=== PATIENT | male | born 1985 | race Caucasian/White ===

== ENCOUNTER → 2017-07-07 | Outpatient (CLI) | payer MEDICAID ==
[~2017-07-07] MED LIST: BENZ0.5T3 PO; BISA-155 PO; CETI10TA18 PO; CHOL400C8 PO; CLIN-79 PO; CLON-527 PO; CLON1TAB4 PO; DIVA500T9 PO; DOCU-28 PO; GLYC1TAB5 PO; IBUP-1985 PO; IBUP-1986 PO; LACT-48 PO; MELA5TAB14 PO; MULT-38 PO; OLAN15TA17 PO; QUET50TA PO; TRAZ150T78 PO; [UNRECOGNIZED DRUG - OTHER] OP
== END ==
LOC: LAB 08:51
PROVIDERS: ATTEND Psychiatry & Neurology Psychiatry
DX: Z51.81 Encounter for therapeutic drug level monitoring (principal); Z79.899 Other long term (current) drug therapy
CPT/HCPCS: 36415; 80164

== ENCOUNTER 2017-09-14 11:03 | Emergency (ER) | payer MEDICAID ==
[~2017-09-14] VITALS: Ht 172.7 cm; Wt 62.7 kg
[~2017-09-14 11:03] MED LIST changes: -BENZ0.5T3 PO; +BENZ0.5T38 PO
[2017-09-14] MEDS ORDERED: ketamine 50 mg/ml 10ml vial IM ONE (11:50)
[2017-09-14] MEDS ORDERED: LIDOcaine 1.5% w/epinephrine 1:200,000 5ml ampul IJ ONE (11:50)
[2017-09-14] MEDS ORDERED: ketamine 10mg/ml 20ml inj IV ONE (13:20)
[2017-09-14 14:42] VITALS: BP 155/92
== END 2017-09-14 14:51 | disposition home or self-care (01) ==
LOC: ER 11:04
DX: S01.511A Laceration without foreign body of lip, initial encounter (principal); Z79.899 Other long term (current) drug therapy; W45.8XXA Other foreign body or object entering through skin, initial encounter; Y93.E1 Activity, personal bathing and showering; Y92.89 Other specified places as the place of occurrence of the external cause; Y99.8 Other external cause status
CPT/HCPCS: 12011; 99152; 99153; 99285; A6449; J3490

== ENCOUNTER 2017-12-18 11:24 | Emergency (ER) | payer MEDICAID ==
[~2017-12-18] VITALS: Ht 172.7 cm; Wt 69.5 kg
[~2017-12-18 11:24] MED LIST changes: -CLIN-79 PO; +CLIN150C8 PO; +CLON-371 PO; -CLON1TAB4 PO
== END 2017-12-18 13:13 | disposition home or self-care (01) ==
LOC: ER 11:25
DX: S90.32XA Contusion of left foot, initial encounter (principal); R62.50 Unspecified lack of expected normal physiological development in childhood; Z79.899 Other long term (current) drug therapy; W22.03XA Walked into furniture, initial encounter; Y93.89 Activity, other specified; Y92.89 Other specified places as the place of occurrence of the external cause; Y99.8 Other external cause status
CPT/HCPCS: 73630; 99284

== ENCOUNTER 2018-01-23 09:08 | Emergency (ER) | payer MEDICAID ==
[~2018-01-23] VITALS: Ht 167.6 cm; Wt 68.2 kg
[2018-01-23] MEDS ORDERED: CEPH-571 PO (09:52)
== END 2018-01-23 10:07 | disposition home or self-care (01) ==
LOC: ER 09:09
DX: S00.432A Contusion of left ear, initial encounter (principal); R45.1 Restlessness and agitation; Z79.899 Other long term (current) drug therapy; W22.8XXA Striking against or struck by other objects, initial encounter; Y93.89 Activity, other specified; Y92.89 Other specified places as the place of occurrence of the external cause; Y99.9 Unspecified external cause status
CPT/HCPCS: 99283

== ENCOUNTER 2018-02-23 17:47 | Emergency (ER) | payer MEDICAID ==
[~2018-02-23] VITALS: Ht 167.6 cm; Wt 63.0 kg
[~2018-02-23 17:47] MED LIST changes: +CEPH-571 PO
[2018-02-23 18:50] VITALS: BP 156/88
== END 2018-02-23 18:52 | disposition home or self-care (01) ==
LOC: ER 17:48
DX: R04.0 Epistaxis (principal); Z79.2 Long term (current) use of antibiotics; Z79.899 Other long term (current) drug therapy
CPT/HCPCS: 99284

== ENCOUNTER 2018-04-29 09:33 | Emergency (ER) | payer MEDICAID ==
[~2018-04-29] VITALS: Ht 182.9 cm; Wt 63.6 kg
[2018-04-29 09:51] VITALS: BP 130/83
[2018-04-29] MEDS ORDERED: AMOX-580 PO (10:18)
== END 2018-04-29 10:37 | disposition home or self-care (01) ==
LOC: ER 09:47
DX: H72.91 Unspecified perforation of tympanic membrane, right ear (principal); Z79.899 Other long term (current) drug therapy
CPT/HCPCS: 99283

== ENCOUNTER 2018-06-05 08:54 | Outpatient (CLI) | payer MEDICAID | END 2018-06-05 23:59 | disposition home or self-care (01) | LOC: LAB 08:54 | PROVIDERS: ATTEND Family Medicine | DX: Z00.00 Encounter for general adult medical examination without abnormal findings (principal); Z53.21 Procedure and treatment not carried out due to patient leaving prior to being seen by health care provider ==

== ENCOUNTER 2019-02-28 08:49 | Outpatient (CLI) | payer MEDICAID ==
[~2019-02-28 08:49] MED LIST changes: +BENZ0.5T27 PO; -BENZ0.5T38 PO; -CEPH-571 PO; -CLIN150C8 PO; +DIPH25CA83 PO; +IBUP-1984 PO; -IBUP-1985 PO; -IBUP-1986 PO; -LACT-48 PO; -OLAN15TA17 PO; +OLAN15TA17 TL; +POLY17PO10 PO; +QUET300T5 PO; -TRAZ150T78 PO; -[UNRECOGNIZED DRUG - OTHER] OP
[2019-02-28 09:54] LABS: BASOPHILS # (AUTO) 0.1 X10'3 (0-0.2); BASOPHILS % (AUTO) 0.5 % (0-1); EOSINOPHILS # (AUTO) 0.1 X10'3 (0-0.9); EOSINOPHILS % (AUTO) 0.7 % (0-6); HEMATOCRIT 45.4 % (42.0-52.0); HEMOGLOBIN 15.5 g/dl (14.0-17.9); LYMPHOCYTES # (AUTO) 3.8 X10'3 (1.1-4.8); MEAN CORPUSCULAR HEMOGLOBIN 28.7 PG (27.0-31.0); MEAN CORPUSCULAR HGB CONC 34.1 g/dL (33.0-36.5); MEAN CORPUSCULAR VOLUME 84.2 FL (78-98); MONOCYTES # (AUTO) 0.6 X10'3 (0-0.9); MONOCYTES % (AUTO) 6.4 % (2-12); NEUTROPHILS # (AUTO) 5.1 X10'3 (1.8-7.7); NEUTROPHILS % (AUTO) 53.4 % (42-75); PLATELET COUNT 254 X10'3 (140-440); RED BLOOD COUNT 5.39 X10'6 (4.70-6.10); RED CELL DISTRIBUTION WIDTH 14.4 % (11.5-14.5); WHITE BLOOD COUNT 9.6 X10'3 (4.5-11.0)
[2019-02-28 10:05] LABS: ALANINE AMINOTRANSFERASE 23 U/L (12-78); ALBUMIN 3.8 G/DL (3.4-5.0); ALBUMIN/GLOBULIN RATIO 0.8 (1.1-1.5); ALKALINE PHOSPHATASE 146 IU/L (46-116); ANION GAP 11 (8-16); ASPARTATE AMINO TRANSFERASE 22 U/L (10-37); BILIRUBIN,TOTAL 0.2 MG/DL (0.1-1.0); BLOOD UREA NITROGEN 15 MG/DL (7-18); BUN/CREATININE RATIO 18.5 (5.4-32.0); CALCIUM 9.2 MG/DL (8.5-10.1); CHLORIDE 107 MMOL/L (99-107); CHOL/HDL RATIO 4.6 (0.00-4.99); CHOLESTEROL 169 MG/DL (0-200); CREATININE 0.81 MG/DL (0.60-1.10); GLUCOSE 98 MG/DL (70-104); HDL CHOLESTEROL 37 MG/DL (35-60); LDL CHOLESTEROL 111 MG/DL (50-100); POTASSIUM 4.3 MMOL/L (3.5-5.1); SODIUM 143 MMOL/L (135-145); TOTAL CARBON DIOXIDE 25.4 MMOL/L (24-32); TOTAL PROTEIN 8.6 G/DL (6.4-8.2); TRIGLYCERIDES 186 MG/DL (20-135); eGFR > 90 ML/MIN
== END 2019-02-28 23:59 | disposition home or self-care (01) ==
LOC: LAB 08:49
PROVIDERS: ATTEND Family Medicine
DX: Z00.00 Encounter for general adult medical examination without abnormal findings (principal)
CPT/HCPCS: 36415; 80053; 80061; 85025

== ENCOUNTER 2019-02-28 08:57 | Outpatient (CLI) | payer MEDICAID | END 2019-02-28 23:59 | disposition home or self-care (01) | LOC: LAB 08:57 | PROVIDERS: ATTEND Psychiatry & Neurology Psychiatry | DX: Z79.899 Other long term (current) drug therapy (principal) | CPT/HCPCS: 36415; 80164 ==

== ENCOUNTER 2019-05-01 09:45 | Emergency (ER) | payer MEDICAID ==
[~2019-05-01] VITALS: Ht 165.1 cm; Wt 76.0 kg
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
[2019-05-01] MEDS ORDERED: ketamine 50 mg/ml 10ml vial IM ONE (11:20)
--- NOTE | 2019-05-01 13:25 | NUR ---
Spoke to PA regarding pt's BP. We were unable to obtain BP prior to administration of ketamine secondary to pt's underlying condition. He is comfortable with BP at this time.
--- NOTE | 2019-05-01 14:15 | NUR ---
Pt at baseline, however unsteady when attempting to stand. Waiting for pt to have more stability prior to discharge.
--- NOTE | 2019-05-01 14:34 | NUR ---
Pt gait remains too unsteady for discharge.
[2019-05-01 14:59] VITALS: BP 148/85
== END 2019-05-01 15:11 | disposition home or self-care (01) ==
LOC: ER 09:45
DX: S01.21XA Laceration without foreign body of nose, initial encounter (principal); F84.0 Autistic disorder; Z79.899 Other long term (current) drug therapy; W18.39XA Other fall on same level, initial encounter; Y93.89 Activity, other specified; Y92.89 Other specified places as the place of occurrence of the external cause; Y99.8 Other external cause status
CPT/HCPCS: 99152; 99285

== ENCOUNTER → 2020-01-24 | Outpatient (CLI) | payer MEDICAID ==
[2020-01-24 10:30] LABS: CHOL/HDL RATIO 4.6 (0.00-4.99); CHOLESTEROL 195 MG/DL (0-200); HDL CHOLESTEROL 42 MG/DL (35-60); LDL CHOLESTEROL 128 MG/DL (50-100); TRIGLYCERIDES 109 MG/DL (20-135); VALPROATE 49 UG/ML (50-100)
== END | disposition home or self-care (01) ==
LOC: LAB 09:14
PROVIDERS: ATTEND Psychiatry & Neurology Psychiatry
DX: Z79.899 Other long term (current) drug therapy (principal)
CPT/HCPCS: 36415; 80061; 80164

== ENCOUNTER 2020-04-24 09:04 | Outpatient (CLI) | payer MEDICAID ==
[2020-04-24 11:26] LABS: BASOPHILS # (AUTO) 0.1 X10'3 (0-0.2); EOSINOPHILS # (AUTO) 0.1 X10'3 (0-0.9); HEMATOCRIT 43.5 % (42.0-52.0); HEMOGLOBIN 14.7 g/dl (14.0-17.9); LYMPHOCYTES # (AUTO) 3.6 X10'3 (1.1-4.8); MEAN CORPUSCULAR HEMOGLOBIN 28.8 PG (27.0-31.0); MEAN CORPUSCULAR HGB CONC 33.8 g/dL (33.0-36.5); MEAN CORPUSCULAR VOLUME 85.4 FL (78-98); MEAN PLATELET VOLUME 8.7 FL (7.4-10.4); MONOCYTES # (AUTO) 0.6 X10'3 (0-0.9); MONOCYTES % (AUTO) 6.2 % (2-12); NEUTROPHILS # (AUTO) 5.8 X10'3 (1.8-7.7); NEUTROPHILS % (AUTO) 56.8 % (42-75); PLATELET COUNT 264 X10'3 (140-440); RED BLOOD COUNT 5.09 X10'6 (4.70-6.10); RED CELL DISTRIBUTION WIDTH 14.3 % (11.5-14.5); WHITE BLOOD COUNT 10.2 X10'3 (4.5-11.0)
[2020-04-24 11:40] LABS: ALANINE AMINOTRANSFERASE 21 U/L (12-78); ALBUMIN 3.8 G/DL (3.4-5.0); ALBUMIN/GLOBULIN RATIO 0.8 (1.1-1.5); ALKALINE PHOSPHATASE 112 IU/L (46-116); ANION GAP 15 (8-16); ASPARTATE AMINO TRANSFERASE 19 U/L (10-37); BILIRUBIN,TOTAL 0.2 MG/DL (0.1-1.0); BLOOD UREA NITROGEN 18 MG/DL (7-18); CHLORIDE 106 MMOL/L (99-107); CHOL/HDL RATIO 4.4 (0.00-4.99); CHOLESTEROL 173 MG/DL (0-200); CREATININE 0.82 MG/DL (0.60-1.10); GLUCOSE 92 MG/DL (70-104); HDL CHOLESTEROL 39 MG/DL (35-60); LDL CHOLESTEROL 103 MG/DL (50-100); POTASSIUM 3.9 MMOL/L (3.5-5.1); SODIUM 145 MMOL/L (135-145); TOTAL CARBON DIOXIDE 23.8 MMOL/L (24-32); TOTAL PROTEIN 8.4 G/DL (6.4-8.2); TRIGLYCERIDES 151 MG/DL (20-135); eGFR > 90 ML/MIN
[2020-04-25 14:40] LABS: HEPATITIS C ANTIBODY <0.1 s/co ratio (0.0-0.9)
== END 2020-04-24 23:59 | disposition home or self-care (01) ==
LOC: LAB 09:04
DX: Z71.3 Dietary counseling and surveillance (principal)
CPT/HCPCS: 36415; 80053; 80061; 83695; 85025; 86803; 87522; 87902

== ENCOUNTER 2024-07-30 13:51 | Emergency (ER) | payer MEDICAID ==
[~2024-07-30] VITALS: Ht 172.7 cm; Wt 52.0 kg
[~2024-07-30 13:51] MED LIST changes: -BENZ0.5T27 PO; +BENZ0.5T52 PO; -CETI10TA18 PO; +CETI10TA19 PO; -MELA5TAB14 PO; +MELA5TAB66 PO; -OLAN15TA17 TL; +OLAN15TA97 TL
[2024-07-30 21:07] VITALS: PULSE 105; RESP 18; TEMP 97.8; O2SAT 95
== END 2024-07-30 16:48 | disposition home or self-care (01) ==
LOC: ER 13:52
DX: R05.9 Cough, unspecified (principal)
CPT/HCPCS: 71045; 99283

== ENCOUNTER 2024-11-20 17:00 | Emergency (ER) | payer MEDICAID ==
--- NOTE | 2024-11-20 18:00 | RADIOLOGY REPORT ---
CHEST RADIOGRAPH Indication: SOB Technique: Single frontal view of the chest was obtained COMPARISON: None FINDINGS: The cardiac silhouette is borderline enlarged. The lungs demonstrate bilateral patchy airspace opacit ies. The pulmonary vasculature is prominent. Small bilateral pleural effusions, [id number] ft. There is no pneumothorax. Old distal right clavicular fracture deformity. IMPRESSION: As above
[2024-11-20 18:07] LABS: MEAN PLATELET VOLUME 8.8 FL (7.4-10.4); RED CELL DISTRIBUTION WIDTH 13.3 % (11.5-14.5)
[2024-11-20 18:17] LABS: CREATININE 1.01 MG/DL (0.60-1.10); TOTAL CARBON DIOXIDE 23.0 MMOL/L (24-32); eGFR 82 ML/MIN
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
[2024-11-20] MEDS: normal saline 1000ML IV soln IVB ONE (19:05)
[2024-11-20 20:54] LABS: LEUKOCYTE ESTERASE ,URINE NEGATIVE (Neg); NITRITES, URINE NEGATIVE (Neg); OCCULT BLOOD,URINE LARGE (Neg)
[2024-11-20 20:56] LABS: UA COLLECTION TYPE STRAIGHT CATH
[2024-11-20 20:59] LABS: SQUAMOUS EPITHELIAL CELL,UR FEW /LPF (FEW); YEAST MODERATE /HPF (NEGATIVE)
[2024-11-20 22:29] VITALS: BP 164/88; PULSE 98; RESP 22; TEMP 99.1; O2SAT 98
== END 2024-11-20 22:34 | disposition home or self-care (01) ==
LOC: ER 17:01
DX: S01.311A Laceration without foreign body of right ear, initial encounter (principal); R00.0 Tachycardia, unspecified; R50.9 Fever, unspecified; Z88.6 Allergy status to analgesic agent; X58.XXXA Exposure to other specified factors, initial encounter; Y93.89 Activity, other specified; Y92.89 Other specified places as the place of occurrence of the external cause; Y99.8 Other external cause status
CPT/HCPCS: 36415; 71045; 80048; 80329; 81001; 83605; 84145; 85025; 87040; 87088; 96360; 99285; J7030; C1758

== ENCOUNTER 2024-11-28 10:36 | Emergency (ER) | payer MEDICAID ==
[~2024-11-28] VITALS: Ht 167.6 cm; Wt 60.8 kg
[2024-11-28 10:37] VITALS: BP 151/102; PULSE 123; RESP 17; TEMP 99.6; O2SAT 95
--- NOTE | 2024-11-28 11:16 | Physician Documentation ---
History of Present Illness ~ Chief Complaint: Knee Pain Stated Complaint: KNEE PAIN Time Seen by MD: 10:44 OK to notify your PCP?: Yes Primary Medical Doctor: RENE Source: patient (The patient's scanner operator) Mode of Arrival: POV Exam Limitations: no limitations HPI This is a 39-year-old male with a history of cerebral palsy and severe developmental delay. Evidently the patient has self harms quiet often and had a recent fall to both knees. He has some mild bruising and swelling of the left knee and the caretakers were concerned there maybe something more going on with the patient has been ambulating of the knee. No other obvious complaints of injury. Tetanus witin 5 years: Yes Medication Reconciliation Allergies: Coded Allergies: No Known Allergies (Unverified , 11/20/24) Scheduled Benztropine Mesylate (Benztropine Mesylate), 1 MG PO BID, (Reported) Cetirizine HCl (Cetirizine HCl), 1 TAB PO DAILY, (Reported) Cholecalciferol (Vitamin D3) (Vitamin D3), 400 UNIT PO DAILY, (Reported) Clonazepam (Clonazepam), 2 TABLET PO AT 8PM, (Reported) Clonazepam* (Klonopin*), 1 MG PO AM AND 6 PM, (Reported) Diphenhydramine Hcl (Benadryl), 2 CAP PO BID, (Reported) Divalproex ER* (Depakote ER*), 2 TAB PO HS, (Reported) Docusate Sodium (Colace), 1 CAP PO HS, (Reported) Glycopyrrolate (Robinul), 1 TAB PO DAILY, (Reported) Ibuprofen* (Motrin*), 0.5 TAB PO Q6H PRN, (Reported) Melatonin (Melatonin), 1 TAB PO HS, (Reported) Multivitamin (Daily Multiple Vitamin), 1 TAB PO DAILY, (Reported) Olanzapine (Olanzapine), 2 TAB TL HS, (Reported) Quetiapine Fumarate (Seroquel), 250 MG PO DAILY, (Reported) Quetiapine Fumarate (Seroquel Xr), 550 MG PO HS, (Reported) Scheduled PRN Bisacodyl (Dulcolax), 2 TABLET PO DAILY PRN for constipation, (Reported) Polyethylene Glycol 3350* (Miralax*), 1 PKT PO DAILY PRN for constipation, (Reported) Past Medical History 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 It is a very superficial abrasion. No erythema or deformity. No obvious effusion. The exam is very limited due to the fact the patient does not tolerate any touch anywhere in the body. However there was no obvious mediolateral joint line deformity. Patella tendon in his intact. No obvious crepitus of the patella itself. Progress Results/Orders Results/Orders Vital Signs 11/28/24 10:37 Temp 99.6 Pulse 123 Resp 17 B/P (MAP) 151/102 Pulse Ox 95 Medical Decision Making Findings An x-ray was attempted however the patient would not tolerate an x-ray of any forearm. This was witnessed by the scanner operator who was understanding. I saw the patient ambulate without any obvious difficulty or deficit. I told the scanner operator her that even if there was a fracture of the patient would not tolerate any type of bracing or splint and would undoubtedly had to heal on its own and time. He can follow up with the PCP for recheck in the next couple of days Additional Comment Left knee contusion. Low clinical suspicion for fracture. Departure Disposition: HOME / SELF CARE / HOMELESS Impression: Primary Impression: Contusion of knee, left Condition: Stable Discharge Instructions: Acute Knee Pain, Adult Additional Instructions: If the patient will tolerate you can though try to apply cold compresses and give Tylenol or any other nonnarcotic [id number] pain medication. Follow up with the primary care physician for recheck. Return for any concerns Referrals: NO PRIMARY CARE PROVIDER (PCP) Signature Scribe Signature: No scribe Attestation: The note accurately reflects work and decisions made by me.Roney BRANHAM 11/28/24 11:16 RONEY GRAF Nov 28, 2024 11:16
== END 2024-11-28 11:20 | disposition home or self-care (01) ==
LOC: ER 10:36
DX: S80.02XA Contusion of left knee, initial encounter (principal); Z79.899 Other long term (current) drug therapy; W18.30XA Fall on same level, unspecified, initial encounter; Y93.89 Activity, other specified; Y92.89 Other specified places as the place of occurrence of the external cause; Y99.8 Other external cause status
CPT/HCPCS: 99284

== ENCOUNTER 2024-12-02 22:52 | Inpatient (IN) | payer MEDICAID ==
[~2024-12-02] VITALS: Ht 165.1 cm; Wt 60.0 kg
--- NOTE | 2024-12-02 23:13 | Physician Documentation ---
History of Present Illness ~ Chief Complaint: Shortness of Breath Stated Complaint: UNABLE TO EAT,WEAKNESS,COUGH Time Seen by MD: 23:01 [facility] Patient presents to the emergency room with chief complaint of lethargy and respiratory distress. Patient was seen here twice this past week for unrelated symptoms. Staff noted that patient was breathing heavily therefore sent him in to be evaluated. Patient is severely delayed and not helpful with history. Patient is not on oxygen in his now requiring oxygen. History of prior pneumonia/aspiration. Medication Reconciliation Allergies: Coded Allergies: No Known Allergies (Unverified , 11/20/24) Scheduled Benztropine Mesylate (Benztropine Mesylate), 1 MG PO BID, (Reported) Benztropine Mesylate (Benztropine Mesylate), 1 TABLET PO BID, (Reported) Cetirizine HCl (Cetirizine HCl), 1 TAB PO DAILY, (Reported) Cholecalciferol (Vitamin D3) (Vitamin D3), 400 UNIT PO DAILY, (Reported) Clonazepam (Clonazepam), 2 TABLET PO AT 8PM, (Reported) Clonazepam* (Klonopin*), 1 MG PO AM AND 6 PM, (Reported) Diphenhydramine Hcl (Benadryl), 2 CAP PO BID, (Reported) Divalproex ER* (Depakote ER*), 2 TAB PO HS, (Reported) Docusate Sodium (Colace), 1 CAP PO HS, (Reported) Glycopyrrolate (Robinul), 1 TAB PO DAILY, (Reported) Ibuprofen* (Motrin*), 0.5 TAB PO Q6H PRN, (Reported) Melatonin (Melatonin), 1 TAB PO HS, (Reported) Multivitamin (Daily Multiple Vitamin), 1 TAB PO DAILY, (Reported) Olanzapine (Olanzapine), 2 TAB TL HS, (Reported) Quetiapine Fumarate (Seroquel), 250 MG PO DAILY, (Reported) Quetiapine Fumarate (Seroquel Xr), 550 MG PO HS, (Reported) Scheduled PRN Bisacodyl (Dulcolax), 2 TABLET PO DAILY PRN for constipation, (Reported) Polyethylene Glycol 3350* (Miralax*), 1 PKT PO DAILY PRN for constipation, (Reported) Past Medical History 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 Eyes: Conjunctival normal. EOMI. PERRL. ENT: Mucous membranes moist. Neck: Supple, trachea is midline. Chest: Coarse breath sounds bilaterally, tachypneic. Cardiac: Tachycardic and regular without murmurs, gallops, or rubs. Progress Results/Orders Results/Orders Orders - DESTIN DEE MD Chest,Single View (12/02/24 23:20) Monitor (12/02/24 23:04) Saline Lock (12/02/24 23:04) Oxygen (12/02/24 23:04) Electrocardiogram (12/02/24 23:04) Culture Blood (12/02/24 23:05) * Restraint Order/Renewal * (12/02/24 23:13) Cta Chest Pe (12/03/24 01:00) Page Hospitalist (12/03/24 02:21) Fill Out Med Reconciliation (12/03/24 02:21) Completed Orders - DESTIN DEE MD Chest,Single View (12/02/24 23:20) Cbc/Diff (12/02/24 23:04) BMP (12/02/24 23:04) PBNP (12/02/24 23:04) Hs Troponin I W Calculations (12/02/24 23:04) Hs Troponin I W Calculations (12/03/24 01:04) Hs Troponin I W Calculations (12/03/24 02:04) Lacticsepsis (12/02/24 23:05) Azithromycin/Ns 500mg/250ml (Zithromax/N (12/02/24 23:20) Ceftriaxone/M0e-Vgyoznck 1gm (Rocephin 1 (12/02/24 23:20) Man Diff (12/02/24 23:36) Cta Chest Pe (12/03/24 01:00) Procalcitonin (12/03/24 00:22) Iohexol 350mg/Ml 100ml (Omnipaque 350mg/ (12/03/24 00:27) Midazolam 1 Mg/Ml 2ml Inj. (Versed 1 Mg/ (12/03/24 00:30) Midazolam 5 Mg/Ml 2ml Inj (Versed 5 Mg/M (12/03/24 00:35) Medications Received in ER Medications (Trade) Dose Ordered Sig/Vee Route PRN Reason Start Time Stop Time Status Last Admin Dose Admin Azithromycin 250 ml @ 250 mls/hr ONCE ONCE IV 12/02/24 23:20 12/03/24 00:19 DC 12/03/24 00:05 250 MLS/HR Ceftriaxone Sodium 50 ml @ 100 mls/hr ONCE ONCE IV 12/02/24 23:20 12/02/24 23:49 DC 12/02/24 23:56 100 MLS/HR (Versed 5 MG/ML 2ML inj) 1 mg ONCE ONCE IV 12/03/24 00:35 12/03/24 00:36 DC 12/03/24 00:53 1 MG Sodium Chloride 1,000 ml @ 50 mls/hr Q20H IV 12/03/24 02:45 12/03/24 03:11 50 MLS/HR Vital Signs 12/02/24 12/02/24 12/02/24 12/03/24 22:59 23:15 23:15 02:00 Temp 97.6 Pulse 95 110 102 Resp 30 16 30 26 B/P (MAP) 119/88 126/66 (86) 120/85 (97) Pulse Ox 95 96 99 O2 Flow Rate 5.0 0 Laboratory Tests Test 12/02/24 23:36 12/03/24 01:27 12/03/24 02:46 White Blood Count 8.3 Red Blood Count 4.33 L Hemoglobin 12.7 L Hematocrit 37.6 L Mean Corpuscular Volume 86.8 Mean Corpuscular Hemoglobin 29.3 Mean Corpuscular Hemoglobin Concent 33.8 Red Cell Distribution Width 13.6 Platelet Count 204 Mean Platelet Volume 9.0 Neutrophils (%) (Auto) 72.5 Lymphocytes (%) (Auto) 12.0 L Monocytes (%) (Auto) 13.9 H Eosinophils (%) (Auto) 0.9 Basophils (%) (Auto) 0.7 Neutrophils # (Auto) 6.0 Lymphocytes # (Auto) 1.0 L Monocytes # (Auto) 1.2 H Eosinophils # (Auto) 0.1 Basophils # (Auto) 0.1 CBC Comment Differential Total Cells Counted 100 Neutrophils % (Manual) 70.0 Band Neutrophils % 3.0 Lymphocytes % (Manual) 11.0 L Monocytes % (Manual) 15.0 H Eosinophils % (Manual) 1.0 Platelet Estimate Normal Red Blood Cell Morphology Normal Basophilic Stippling Sodium Level 140 Potassium Level 4.1 Chloride Level 101 Carbon Dioxide Level 28.2 Anion Gap 11 Blood Urea Nitrogen 33 H Creatinine 0.98 Estimated GFR/1.73 m2 85 BUN/Creatinine Ratio 33.7 H Glucose Level 104 Lactic Acid Level 1.4 Calcium Level 8.7 Troponin I High Sensitivity 10 13 13 Pro-B-Type Natriuretic Peptide < 30 Albumin 2.7 L Procalcitonin 0.05 Chemistry Comments Troponin I High Sens Percent Delta 30 0 Troponin I Hi Sens Absolute Change 3 0 Hemoglobin A1c 5.4 Microbiology Date/Time Source Procedure Growth Status 12/03/24 00:04 Blood Arm Left Blood Culture - Preliminary NEGATIVE (LESS THAN 24 HOURS) Resulted Medical Decision Making Findings Patient presented to the emergency room with shortness of breath. Differentials include but are not limited to pneumonia, pneumothorax, pulmonary embolism, viral syndrome, asthma therefore emergent labs and imaging indicated. Imaging and workup significant for pneumonia. IV antibiotics initiated. As patient is hypoxic we will admit for further treatment. Departure Admitted to Inpatient Unit: yes, to hospitalist Impression: Primary Impression: Pneumonia Additional Impression: Hypoxia Condition: Guarded Referrals: NO PRIMARY CARE PROVIDER (PCP) Signature Scribe Signature: No scribe Attestation: The note accurately reflects work and decisions made by me.Destin Dee MD 12/03/24 03:41 DESTIN DEE MD Dec 02, 2024 23:13
[2024-12-02 23:46] LABS: MEAN PLATELET VOLUME 9.0 FL (7.4-10.4); RED CELL DISTRIBUTION WIDTH 13.6 % (11.5-14.5)
--- NOTE | 2024-12-02 23:46 | RADIOLOGY REPORT ---
CHEST RADIOGRAPH REASON FOR EXAM: Chest pain COMPARISON: DI CHEST,SINGLE VIEW on DOS: 11/20/24, DI CHEST,SINGLE VIEW on DOS: 07/30/24 TECHNIQUE: One view of the chest is provided FINDINGS: The cardiomediastinal silhouette is stable. There is worsening bilateral patchy airspace di sease. There are small bilateral pleural effusions, increased. There is no pneumothorax. No acute os seous abnormality is identified. There is old healed fracture of the right clavicle. IMPRESSION: Worsening bilateral patchy airspace disease. Small bilateral pleural effusions, also slightly increas ed.
[2024-12-02] MEDS: CefTRIAXone/D5W-Rocephin 1gm 50 ML IV ONE (23:56)
[2024-12-03] VITALS (10 sets, daily range): BP systolic 123–144; BP diastolic 61–88; PULSE 88–102; RESP 19–48; TEMP 97.3–99.7; O2SAT 93–96
[2024-12-03] MEDS: azithromycin/NS 500mg/250ml 250 ML IV ONE (00:05)
[2024-12-03 00:06] LABS: CREATININE 0.98 MG/DL (0.60-1.10); PRO BRAIN NATRIURETIC PEPTIDE < 30 PG/ML (0-125); TOTAL CARBON DIOXIDE 28.2 MMOL/L (24-32); eCRCL 88 ML/MIN; eGFR 85 ML/MIN
[2024-12-03] MEDS ORDERED: midazolam 1 mg/ML 2ml injection IV ONE (00:30)
[2024-12-03] MEDS: MIDAZolam 5mg/ml 2ml vial IV ONE (00:53)
[2024-12-03 01:05] LABS: BANDS% (MANUAL) 3.0 % (0-10); EOSINOPHILS % (MANUAL) 1.0 % (0-6); LYMPHOCYTES % (MANUAL) 11.0 % (21-51); MONOCYTES % (MANUAL) 15.0 % (2-12); NEUTROPHILS % (MANUAL) 70.0 % (42-75); PLATELET ESTIMATE NORMAL
--- NOTE | 2024-12-03 02:06 | RADIOLOGY REPORT ---
CTA Chest with intravenous contrast INDICATION: sob COMPARISON: None TECHNIQUE: Multidetector spiral CTA of the chest was performed of the chest with intravenous contrast . PULMONARY ANGIOGRAPHY PROTOCOL was utilized using a bolus-tracking technique centered on the main p ulmonary artery. Axial, coronal and sagittal multiplanar and MIP reformats were performed. Radiation Dose : 1. Chest: CTDI volume is 23.27 mGy. Dose-length product is 657.44 mGy*cm The dose indicators for CT are the volume Computed Tomography (CT) Dose Index (CTDIvol) and the Dose Length Product (DLP), and are measured in units of mGy and mGy-cm, respectively. These indicators are not patient dose, but values generated from the CT scanner acquisition factors. The report includes radiation exposure data for exposures received during this examination. Findings: Pulmonary artery: No pulmonary embolism. The main pulmonary artery measures 2.7 cm in the ascending thoracic aorta measures 3.2 cm. Lower neck: Normal thyroid. Lungs: Multifocal bilateral lower lobe, lingular and right middle lobe consolidation and patchy bilat eral upper lobe infiltrate. No evidence of pleural effusion. No evidence of pneumothorax. Heart/Vascular Structures: Cardiomegaly. No pericardial effusion. Lymph Nodes: 1.5 cm short axis dimension right suprahilar lymph node. Musculoskeletal: No acute osseous abnormality. Soft tissues: Normal. Upper abdomen: Limited portions of the upper abdomen are unremarkable. IMPRESSION: 1. No pulmonary embolism. 2. Extensive bilateral lower lobe, lingular and right middle lobe consolidation consistent with pneum onia. Patchy multifocal bilateral upper lobe pulmonary infiltrate noted as well. 3. Cardiomegaly. 4. Enlarged right hilar lymph node.
[2024-12-03] MEDS ORDERED: ondansetron/PF 4mg/2ml inj IV PRN (02:45)
[2024-12-03] MEDS ORDERED: mag hydrox/Alum hydrox/simeth 30ml oral suspension PO PRN (02:45)
[2024-12-03] MEDS ORDERED: magnesium sulf-water 4G/100mL 100 ML IV PRN (02:45)
[2024-12-03] MEDS ORDERED: magnesium Cl slow-release 64mg tablet PO PRN (02:45)
[2024-12-03] MEDS ORDERED: potassium Cl 20 mEq SR tablet PO PRN ×2 (02:45)
[2024-12-03] MEDS ORDERED: magnesium sulf-water 2g/50mL 50 ML IV PRN (02:45)
[2024-12-03] MEDS ORDERED: potassium Cl 40MEQ/1/2NS 520ml 520 ML IV PRN (02:45)
[2024-12-03] MEDS ORDERED: magnesium hydroxide 30ml (MOM) UD suspension PO PRN (02:45)
[2024-12-03] MEDS ORDERED: HYDROcodone/acetaminophen 5mg/325mg tablet PO PRN (02:45)
[2024-12-03] MEDS ORDERED: HYDROcodone/acetaminophen 10/325mg tab PO PRN (02:45)
[2024-12-03] MEDS ORDERED: albuterol 2.5 MG/3 ML nebule NEB PRN (02:50)
--- NOTE | 2024-12-03 03:00 | HISTORY AND PHYSICAL-Residence ---
History & Physical Providers to CC Resident Creating Document: FLORINDA BAKER RES ~ History of Present Illness Primary Medical Doctor: [facility] Reason for Admit\Complaint: Shortness of breath History of Present Illness This 39-year-old male with a history of autism, profound intellectual disability, PICA was brought to the ER by his caregiver. Patient is nonverbal and can not understand or answer questions. All the information provided by the caregiver. States that the patient does not talk and is self-injurious and hits his head to muro and doors as he walks. Usually eats a lot but has not been eating much since Monday last week. Looked lethargic and also had shortness of breaths. Started coughing but did not bring up any phlegm. He also noticed that the patient was limping on the left leg. Patient usually forcefully bends to the floor and hit said and so the caregiver suspect some injury. He also noticed mild edema in the left foot today. Denies any fever or chills, chest pain, nausea or vomiting, constipation or diarrhea. His last bowel movement was on Monday. Per the caregiver, patient had recurrent pneumonias in the past and was admitted at [facility] in March last year for about one week of antibiotics and also oxygen requirement. Denies any intubation or ICU admission. Patient has been at the facility since 2016. Caregiver at the bedside-Mr. Hassan - [phone]. He is unsure about patient's code status and is okay for the patient to be on a full code. Patient's conservator-Ms.Claudia De Los Santos - [phone]. Allergies: Coded Allergies: No Known Allergies (Unverified , 11/20/24) Home Medications Home Medications Active Reported Benadryl (Diphenhydramine Hcl) 25 Mg Capsule 2 Cap PO BID Seroquel Xr (Quetiapine Fumarate) 300 Mg Tab.sr.24h 550 Mg PO HS Miralax* (Polyethylene Glycol) 1 Packet Packet 1 Pkt PO DAILY PRN Motrin* (Ibuprofen) 400 Mg Tablet 0.5 Tab PO Q6H PRN Olanzapine 15 Mg Tablet 2 Tab TL HS Seroquel (Quetiapine Fumarate) 50 Mg Tablet 250 Mg PO DAILY Melatonin 5 Mg Tablet 1 Tab PO HS Clonazepam 1 Mg Tablet 2 Tablet PO AT 8PM Vitamin D3 (Cholecalciferol (Vitamin D3)) 400 Unit Capsule 400 Unit PO DAILY Robinul (Glycopyrrolate) 1 Mg Tablet 1 Tab PO DAILY Daily Multiple Vitamin (Multivitamin) 1 Each Tablet 1 Tab PO DAILY Dulcolax (Bisacodyl) 5 Mg Tablet.dr 2 Tablet PO DAILY PRN Depakote ER* (Divalproex Sodium) 500 Mg Tab.sr.24h 2 Tab PO HS Colace (Docusate Sodium) 100 Mg Capsule 1 Cap PO HS Klonopin* (Clonazepam) 1 Mg Tablet 1 Mg PO AM AND 6 PM Cetirizine HCl 10 Mg Tab.chew 1 Tab PO DAILY Benztropine Mesylate 0.5 Mg Tablet 1 Mg PO BID Past Medical History Past Medical History Autism, profound intellectual disability, PICA Past Surgical History Surgical History Comment Per caregiver, no surgical history as well as he knows Past Social History Social History Comment Per caregiver, patient does not smoke tobacco, drink alcohol or abusing any other recreational drugs Alcohol Use: None Drug Use: None Lives with: Other Lives In: Assisted Care Occupation: disabled ROS ROS Patient is awake but is not oriented. Is nonverbal. Withdraws to pain. Could not perform review of systems Exam Vitals: Vital Signs Date Time Temp Pulse Resp B/P (MAP) Pulse Ox O2 Delivery O2 Flow Rate FiO2 12/03/24 02:00 102 26 120/85 (97) 99 0 12/02/24 22:59 97.6 General: Awake. GCS 9-spontaneous eye response, no verbal response, withdrawal from pain. In mild respiratory distress HEENT: Normocephalic and atraumatic. Pupils equal round reactive to light. Extraocular movements intact. Patient not showing his face for examination Neck: Trachea is in midline. No masses or JVD Chest: Bilateral decreased breath sounds. Bilateral rhonchi present. No wheezing or crackles Cardiovascular: Regular rhythm. Tachycardic. No rubs or murmurs Abdomen: Soft, nontender nondistended. Bowel sounds present Extremities: No cyanosis, or clubbing. Mild nonpitting edema on left foot. Withdrawing when palpating left ankle Central Nervous System: Patient not able to understand and follow commands. Is able to move all his four extremities without any difficulty Skin: Warm and dry Diagnostic Data Last Recorded Lab Results: 12/02/24 2336 12/02/24 2336 Advance Care Planning Advanced Care plannin - 30 Minutes Additional Plan Possible community-acquired pneumonia and aspiration pneumonia [id number]/minute, [id number]/minute Pneumonia severity index-class III if community-acquired pneumonia Multiple pneumonias in the past Requiring 4 L O2 via nasal cannula. No home oxygen Consider high-flow O2/BiPAP to help increased work of breathing Chest/thorax CTA showed no pulmonary embolism. Multifocal bilateral lower lobe, lingular and right middle lobe consolidation and patchy bilateral upper lobe infiltrate. No evidence of pleural effusion. No evidence of pneumothorax. Cardiomegaly. Right suprahilar large lymph node Received Rocephin 1 g IV and azithromycin 500 mg IV once in the ER Started Zosyn 4.5 g IV q.8h Albuterol and DuoNeb q.4h p.r.n. Started normal saline at 50 cc/hour. To avoid fluid overload in case patient progresses to ARDS Sputum cultures and blood cultures ordered I would not think he would cooperate for an ABG Lactic acid normal Started Mucinex 600 mg p.o. q.12h MRSA nasal swab ordered. Start vancomycin if positive Left knee pain and ankle pain Left knee and ankle x-rays ordered Tylenol 650 mg p.o. q.6h p.r.n. for pain # Pending med reconciliation. Continue home medications after med reconciliation DVT prophylaxis: Lovenox 40 mg subcutaneous daily Diet: Regular diet after passing swallow evaluation by speech therapy Florinda Baker MD Internal Medicine Resident, PGY 3 Patient evaluated using HIPPA complaint AV device Agree with the resident as outlined above Venu Bhat MD Date of Service: Dec 03, 2024 Billing Provider: VENU BHAT MD, MANOJNA RES Dec 03, 2024 03:00 VENU BHAT MD Dec 03, 2024 03:40
[2024-12-03] MEDS: normal saline 1000ml 1,000 ML IV SCH (03:11)
[2024-12-03] MEDS ORDERED: BENZ0.5T44 PO (03:40)
--- NOTE | 2024-12-03 04:55 | RADIOLOGY REPORT ---
CLINICAL INDICATION: Knee pain LEFT TECHNIQUE: DI KNEE LIMITED (AP/LAT) Comparison: None FINDINGS/IMPRESSION: : Limited single lateral view of the knee demonstrates normal patellofemoral articulation and normal-ap pearing tibiofemoral joint space without evidence of fracture, dislocation or joint effusion.
--- NOTE | 2024-12-03 04:55 | RADIOLOGY REPORT ---
CLINICAL INDICATION: Knee pain/ankle pain KEFT TECHNIQUE: DI ANKLE,LIMITED (AP/LAT) Comparison: None FINDINGS/IMPRESSION: : Limited single lateral view of the ankle reveals grossly normal alignment and joint spaces and no david dence of tibiotalar effusion, fracture or dislocation.
--- NOTE | 2024-12-03 05:23 | ELECTROCARDIOGRAPH REPORT ---
[facility] Test Date: 2024-12-03 Test Time: 01:50:44 Pat Name: HUSSEIN BACA Department: [id number] Room: [place] [address] B Gender: M Employment Director: : 1985 Requested By: HUSSEIN PEDERSON Order Number: [id number] Reading MD: Measurements Intervals Sarita Rate: 109 P: 47 MS: 112 QRS: -10 QRSD: 88 T: 88 QT: 334 QTc: 450 Interpretive Statements Sinus tachycardia Borderline ST depression, anterolateral leads Please click the below link to view image of tracing.
[2024-12-03 06:19] LABS: MEAN PLATELET VOLUME 8.7 FL (7.4-10.4); RED CELL DISTRIBUTION WIDTH 13.5 % (11.5-14.5)
[2024-12-03 06:50] LABS: CREATININE 0.75 MG/DL (0.60-1.10); TOTAL CARBON DIOXIDE 28.9 MMOL/L (24-32); eCRCL 115 ML/MIN; eGFR > 90 ML/MIN
[2024-12-03] MEDS: guaiFENesin ER 600mg tablet PO SCH (08:00)
[2024-12-03] MEDS: K and/or MAG REPLACEMENT MC SCH (08:00)
[2024-12-03] MEDS: ipratropium/albuterol 3ml nebule NEB PRN (08:22)
[2024-12-03] MEDS: piperacillin/tazo 4.5gm/100ml 100 ML IV SCH (08:38)
[2024-12-03] MEDS: enoxaparin 40mg/0.4ml syringe SQ SCH (20:25)
[2024-12-04] VITALS (15 sets, daily range): BP systolic 125–141; BP diastolic 68–97; PULSE 83–107; RESP 18–46; TEMP 97.7–98.7; O2SAT 87–99
[2024-12-04] MEDS ORDERED: QUET200T31 PO (01:59)
[2024-12-04] MEDS ORDERED: QUET50TA24 PO (01:59)
[2024-12-04] MEDS ORDERED: DIVA-74 PO ×2 (01:59)
[2024-12-04 08:15] LABS: MEAN PLATELET VOLUME 9.1 FL (7.4-10.4); RED CELL DISTRIBUTION WIDTH 13.5 % (11.5-14.5)
[2024-12-04] MEDS: azithromycin/NS 500mg/250ml 250 ML IV SCH (08:25)
[2024-12-04] MEDS: benztropine 1mg tablet PO SCH (08:26)
[2024-12-04 08:27] LABS: CREATININE 1.08 MG/DL (0.60-1.10); PHOSPHORUS 3.0 MG/DL (2.3-4.5); TOTAL CARBON DIOXIDE 28.0 MMOL/L (24-32); eCRCL 80 ML/MIN; eGFR 76 ML/MIN
[2024-12-04] MEDS: divalproex 250mg tablet, delayed-release PO SCH (08:27)
[2024-12-04 08:28] LABS: APTT 35 SECONDS (22-32); CHOL/HDL RATIO 4.7 (0.00-4.99); INR 1.2 INR; LDL CHOLESTEROL 88 MG/DL (50-100)
[2024-12-04 09:37] LABS: BANDS% (MANUAL) 4.0 % (0-10); LYMPHOCYTES % (MANUAL) 9.0 % (21-51); METAMYLEOCYTES% (MANUAL) 3.0 % (0-0); MONOCYTES % (MANUAL) 3.0 % (2-12); NEUTROPHILS % (MANUAL) 81.0 % (42-75); PLATELET ESTIMATE INCREASED
--- NOTE | 2024-12-04 17:36 | PROGRESS NOTE- Residence ---
Progress Note - Resident Providers to CC Resident Creating Document: NAOMI ENRIQUEZ RES ~ Antibiotic Timeout Antibiotic Ordered?: Yes Subjective Patient was seen and examined at bedside, who is slightly agitated and pulling out his IV lines, hence restraints were renewed today. Objective Vital Signs Date Time Temp Pulse Resp B/P (MAP) Pulse Ox O2 Delivery O2 Flow Rate FiO2 12/04/24 17:07 90 22 Nasal Cannula 3.0 12/04/24 17:00 87 21 12/04/24 15:00 98.0 140/89 (106) Result Diagram: 12/04/24 0712/04/24 07 General: Conscious but unresponsive. GCS 9 - spontaneous eye reaction, no verbal communication, withdrawal to painful stimuli. Experiencing mild respiratory distress. HEENT: Head is normal in shape and no injuries. Pupils are equal, round, and reactive to light. Eye movements are intact. Patient is not exposing his face for examination. Neck: Trachea is centrally positioned. No masses or jugular vein distension noted. Chest: Decreased breath sounds bilaterally. Presence of bilateral rhonchi. No wheezing or crackling sounds detected. Cardiovascular: Rhythm is regular. No rubs or murmurs present. Abdomen: Soft, non-tender, and non-distended. Bowel sounds are audible. Extremities: No signs of cyanosis or clubbing. No edema today. Patient withdraws on examining Central Nervous System: Patient is unable to comprehend or follow commands. Can move all four limbs without difficulty. Skin: Warm and dry to the touch. Coagulation Studies Laboratory Tests Test 12/04/24 07:25 Prothrombin Time 12.0 SECONDS (9.0-12.0) INR International Normalized Ratio 1.2 INR Activated Partial Thromboplast Time 35 SECONDS (22-32) H Coagulation Comments Advance Care Planning Advanced Care plannin - 30 Minutes Assessment Assessment 39-year-old male with autism, profound intellectual disability, nonverbal, history of PICA and recurrent pneumonias, presenting with lethargy, decreased oral intake, SOB, cough, fever, and left leg limp. Found to have multifocal pneumonia with respiratory distress and left lower extremity pain/edema. GCS 9 on exam. CTA chest showed bilateral consolidations, no PE, and cardiomegaly. Plan Plan 1. Acute hypoxemic respiratory failure secondary to multifocal pneumoniae Multifocal pneumonia (likely aspiration vs community-acquired) Gram-positive Gram-negative coverage Started on empiric Zosyn 4.5 g IV q8h, Azithromycin 500 mg IV daily, and Methylprednisolone 60 mg IV q6h Received initial dose of Rocephin and azithromycin in ED O2 requirement: now on 3 L NC (no home oxygen) monitor for escalation MRSA nasal swab negative Sputum cultures pending and blood cultures negative until today Continue Mucinex 600 mg PO BID, Albuterol/DuoNeb PRN and q.4h scheduled IVF at 50cc/hr stopped today 2. Hypoxia and respiratory distress Monitor oxygen requirements and work of breathing Consider repeat imaging and escalation of care if clinical status worsens ABG deferred (patient not cooperative) 3. Left foot/ankle pain and edema Likely trauma (self-injurious behavior); rule out fracture X-rays of left knee and ankle normal with no acute fractures Tylenol 650 mg PO q6h PRN for pain 4. Nutrition and swallowing safety Speech therapy eval done, passed swallow eval Started minced/chopped regular diet, thick liquids 5 Acute delirium, schizophrenia: Continue home medications quetiapine 200 mg p.o. b.i.d., olanzapine 15 mg 2 tab HS 6. Normocytic normochromic anemia: Continue monitoring hemoglobin, hemoglobin stable at 12 5 DVT prophylaxis: Lovenox 40 mg SC daily Code status: Full code per caregiver Conservator: Ms. Karena De Los Santos, Naomi Enriquez MD Internal Medicine Resident, PGY-2 Date of Service: Dec 04, 2024 Billing Provider: ANDREA ALCALA MD, GAURAV, RES Dec 04, 2024 17:36
[2024-12-04] MEDS: ipratropium/albuterol 3ml nebule NEB SCH (19:51)
[2024-12-04] MEDS: guaiFENesin 200 MG/10 ML oral syrup UD cup PO SCH (20:21)
[2024-12-04] MEDS: OLANZapine 5mg rapidly disint. tablet PO SCH (20:21)
[2024-12-05] VITALS (17 sets, daily range): BP systolic 101–149; BP diastolic 53–94; PULSE 74–118; RESP 15–37; TEMP 97.6–98; O2SAT 90–97
[2024-12-05 10:29] LABS: MEAN PLATELET VOLUME 8.6 FL (7.4-10.4); RED CELL DISTRIBUTION WIDTH 13.8 % (11.5-14.5)
[2024-12-05 10:40] LABS: APTT 39 SECONDS (22-32); INR 1.2 INR
[2024-12-05 10:42] LABS: CREATININE 0.80 MG/DL (0.60-1.10); PHOSPHORUS 3.6 MG/DL (2.3-4.5); TOTAL CARBON DIOXIDE 29.8 MMOL/L (24-32); eCRCL 105 ML/MIN; eGFR > 90 ML/MIN
[2024-12-05] MEDS: VANCOmycin 1250MG/NS 250ml Bag 250 ML IV SCH (12:28)
--- NOTE | 2024-12-05 13:24 | PROGRESS NOTE- Residence ---
Progress Note - Resident Providers to CC Resident Creating Document: NAOMI ENRIQUEZ RES ~ Antibiotic Timeout Antibiotic Ordered?: Yes Subjective Patient was seen and examined at bedside, patient has been lot calmer and pleasant since the last night, he did not need restraints since yesterday. Objective Vital Signs Date Time Temp Pulse Resp B/P (MAP) Pulse Ox O2 Delivery O2 Flow Rate FiO2 12/05/24 11:47 92 16 Nasal Cannula 3.0 12/05/24 11:46 93 32 12/05/24 11:00 98.0 136/72 (93) Result Diagram: 12/05/24 1015 12/05/24 1015 General: Conscious but unresponsive. GCS 9 - spontaneous eye reaction, no verbal communication, withdrawal to painful stimuli. Experiencing mild respiratory distress. HEENT: Head is normal in shape and no injuries. Pupils are equal, round, and reactive to light. Eye movements are intact. Patient is not exposing his face for examination. Neck: Trachea is centrally positioned. No masses or jugular vein distension noted. Chest: Decreased breath sounds bilaterally. Presence of bilateral rhonchi. No wheezing or crackling sounds detected. Cardiovascular: Rhythm is regular. No rubs or murmurs present. Abdomen: Soft, non-tender, and non-distended. Bowel sounds are audible. Extremities: No signs of cyanosis or clubbing. No edema today. Patient withdraws on examining, small blister on the left thumb Central Nervous System: Patient is unable to comprehend or follow commands. Can move all four limbs without difficulty. Skin: Warm and dry to the touch. Coagulation Studies Laboratory Tests Test 12/05/24 10:15 Prothrombin Time 12.5 SECONDS (9.0-12.0) H INR International Normalized Ratio 1.2 INR Activated Partial Thromboplast Time 39 SECONDS (22-32) H Coagulation Comments Advance Care Planning Advanced Care plannin - 30 Minutes Assessment Assessment 39-year-old male with autism, profound intellectual disability, nonverbal, history of PICA and recurrent pneumonias, presenting with lethargy, decreased oral intake, SOB, cough, fever, and left leg limp. Found to have multifocal pneumonia with respiratory distress and left lower extremity pain/edema. GCS 9 on exam. CTA chest showed bilateral consolidations, no PE, and cardiomegaly. Plan Plan 1. Acute hypoxemic respiratory failure secondary to multifocal pneumoniae Multifocal pneumonia (likely aspiration vs community-acquired) Gram-positive Gram-negative coverage Started on empiric Zosyn 4.5 g IV q8h, Azithromycin 500 mg IV daily, and Methylprednisolone 60 mg IV q6h Received initial dose of Rocephin and azithromycin in ED O2 requirement: now on 3 L NC (no home oxygen) monitor for escalation MRSA nasal swab negative Sputum cultures pending and blood cultures negative until today Continue Mucinex 600 mg PO BID, Albuterol/DuoNeb PRN and q.4h scheduled IVF at 50cc/hr stopped today 12/05/2024: Patient is still requiring 3 L of oxygen and maintaining SpO2 of 93-94% Elevated white count secondary to steroid use. Continue Zosyn azithromycin as above Blood cultures positive for Gram-positive cocci in clusters, awaiting final report Empirically started patient on vancomycin, pharmacy to dose 2. Hypoxia and respiratory distress Monitor oxygen requirements and work of breathing Consider repeat imaging and escalation of care if clinical status worsens ABG deferred (patient not cooperative) 3. Left foot/ankle pain and edema Likely trauma (self-injurious behavior); rule out fracture X-rays of left knee and ankle normal with no acute fractures Tylenol 650 mg PO q6h PRN for pain 12/05/2024: Patient developed a small blister on her left thumb, Wound Care was consulted for protein skin care 4. Nutrition and swallowing safety Speech therapy eval done, passed swallow eval Continue minced/chopped regular diet, thick liquids 5 Acute delirium, schizophrenia: Continue home medications quetiapine 200 mg p.o. b.i.d., olanzapine 15 mg 2 tab HS 6. Normocytic normochromic anemia: Continue monitoring hemoglobin, hemoglobin stable DVT prophylaxis: Lovenox 40 mg SC daily Code status: Full code per caregiver Conservator: Ms. Karena De Los Santos, Naomi Enriquez MD Internal Medicine Resident, PGY-2 Date of Service: Dec 05, 2024 Billing Provider: ANDREA ALCALA MD,NAOMI, RES Dec 05, 2024 13:24
[2024-12-05] MEDS: normal saline 1000ml 1,000 ML IV SCH (17:14)
[2024-12-06] VITALS (19 sets, daily range): BP systolic 110–150; BP diastolic 57–106; PULSE 55–83; RESP 0–20; TEMP 97.2–98.1; O2SAT 90–98
[2024-12-06 06:18] LABS: MEAN PLATELET VOLUME 8.6 FL (7.4-10.4); RED CELL DISTRIBUTION WIDTH 13.9 % (11.5-14.5)
[2024-12-06 06:19] LABS: APTT 40 SECONDS (22-32); INR 1.2 INR
[2024-12-06 06:23] LABS: CREATININE 0.88 MG/DL (0.60-1.10); PHOSPHORUS 4.6 MG/DL (2.3-4.5); TOTAL CARBON DIOXIDE 26.4 MMOL/L (24-32); eCRCL 96 ML/MIN; eGFR > 90 ML/MIN
[2024-12-06 07:10] LABS: BANDS% (MANUAL) 12.0 % (0-10); LYMPHOCYTES % (MANUAL) 18.0 % (21-51); METAMYLEOCYTES% (MANUAL) 3.0 % (0-0); MONOCYTES % (MANUAL) 4.0 % (2-12); NEUTROPHILS % (MANUAL) 63.0 % (42-75)
[2024-12-06 07:11] LABS: PLATELET ESTIMATE NORMAL
[2024-12-06 14:23] LABS: CREATININE 0.97 MG/DL (0.60-1.10); TOTAL CARBON DIOXIDE 27.0 MMOL/L (24-32); eCRCL 87 ML/MIN; eGFR 86 ML/MIN
--- NOTE | 2024-12-06 15:11 | PROGRESS NOTE- Residence ---
Progress Note - Resident Providers to CC Resident Creating Document: NAOMI ENRIQUEZ RES ~ Antibiotic Timeout Antibiotic Ordered?: Yes Subjective Patient was seen and examined at bedside, no acute overnight symptoms. Objective Vital Signs Date Time Temp Pulse Resp B/P (MAP) Pulse Ox O2 Delivery O2 Flow Rate FiO2 12/06/24 11:23 68 18 Nasal Cannula 3.0 12/06/24 11:18 98 32 12/06/24 11:05 97.2 146/94 (111) Result Diagram: 12/06/24 0544 12/06/24 1354 General: Conscious but unresponsive. GCS 9 - spontaneous eye reaction, no verbal communication, withdrawal to painful stimuli. Experiencing mild respiratory distress. HEENT: Head is normal in shape and no injuries. Pupils are equal, round, and reactive to light. Eye movements are intact. Patient is not exposing his face for examination. Neck: Trachea is centrally positioned. No masses or jugular vein distension noted. Chest: Decreased breath sounds bilaterally. Presence of bilateral rhonchi. No wheezing or crackling sounds detected. Cardiovascular: Rhythm is regular. No rubs or murmurs present. Abdomen: Soft, non-tender, and non-distended. Bowel sounds are audible. Extremities: No signs of cyanosis or clubbing. No edema today. Patient withdraws on examining Central Nervous System: Patient is unable to comprehend or follow commands. Can move all four limbs without difficulty. Skin: Warm and dry to the touch. Coagulation Studies Laboratory Tests Test 12/06/24 05:44 Prothrombin Time 12.4 SECONDS (9.0-12.0) H INR International Normalized Ratio 1.2 INR Activated Partial Thromboplast Time 40 SECONDS (22-32) H Coagulation Comments Advance Care Planning Advanced Care plannin - 30 Minutes Assessment Assessment 39-year-old male with autism, profound intellectual disability, nonverbal, history of PICA and recurrent pneumonias, presenting with lethargy, decreased oral intake, SOB, cough, fever, and left leg limp. Found to have multifocal pneumonia with respiratory distress and left lower extremity pain/edema. GCS 9 on exam. CTA chest showed bilateral consolidations, no PE, and cardiomegaly. Plan Plan 1. Acute hypoxemic respiratory failure secondary to multifocal pneumoniae Multifocal pneumonia (likely aspiration vs community-acquired) Gram-positive Gram-negative coverage Gram-positive bacteremia, Staphylococcus saprophyticus Started on empiric Zosyn 4.5 g IV q8h, Azithromycin 500 mg IV daily, and Methylprednisolone 60 mg IV q6h Received initial dose of Rocephin and azithromycin in ED O2 requirement: now on 3 L NC (no home oxygen) monitor for escalation MRSA nasal swab negative Sputum cultures pending and blood cultures negative until today Continue Mucinex 600 mg PO BID, Albuterol/DuoNeb PRN and q.4h scheduled IVF at 50cc/hr stopped today 12/05/2024: Patient is still requiring 3 L of oxygen and maintaining SpO2 of 93-94% Elevated white count secondary to steroid use. Continue Zosyn azithromycin as above Blood cultures positive for Gram-positive cocci in clusters, awaiting final report Empirically started patient on vancomycin, pharmacy to dose 12/06/2024: Still on 3 L of oxygen maintaining SpO2 of 94% Elevated white count (secondary to steroid use) Zosyn- day 4 Azithromycin- day 3, discontinued today Vancomycin-day 2 Blood cultures positive for Staphylococcus saprophyticus, sensitive for vancomycin To be DCed on levofloxacin (Staphylococcus saprophyticus sensitive also covers pneumoniae pathogens) 2. Hypoxia and respiratory distress Monitor oxygen requirements and work of breathing Consider repeat imaging and escalation of care if clinical status worsens ABG deferred (patient not cooperative) 3. Left foot/ankle pain and edema Likely trauma (self-injurious behavior); rule out fracture X-rays of left knee and ankle normal with no acute fractures Tylenol 650 mg PO q6h PRN for pain 12/05/2024: Patient developed a small blister on her left thumb, Wound Care was consulted for protein skin care 12/06/2024: Continue wound care 4. Nutrition and swallowing safety Speech therapy eval done, passed swallow eval Continue minced/chopped regular diet, thick liquids 5 Acute delirium, schizophrenia: Continue home medications quetiapine 200 mg p.o. b.i.d., olanzapine 15 mg 2 tab HS 6. Normocytic normochromic anemia: Continue monitoring hemoglobin, hemoglobin stable DVT prophylaxis: Lovenox 40 mg SC daily Code status: Full code per caregiver Conservator: Ms. Karena De Los Santos, Patient will benefit from home oxygen Naomi Enriquez MD Internal Medicine Resident, PGY-2 Date of Service: Dec 06, 2024 Billing Provider: ANDREA ALCALA MD, GAURAV, RES Dec 06, 2024 15:11
[2024-12-06] MEDS ORDERED: LACT1CAP26 PO (18:16)
[2024-12-06] MEDS ORDERED: PRED10TA PO (18:16)
[2024-12-06] MEDS ORDERED: GUAI100L97 PO (18:16)
[2024-12-07] VITALS (10 sets, daily range): BP systolic 135–151; BP diastolic 75–97; PULSE 61–79; RESP 17–22; TEMP 97.2–97.8; O2SAT 92–98
[2024-12-07] MEDS: VANCOMYCIN LEVEL IV ONE (00:15)
[2024-12-07 06:54] LABS: MEAN PLATELET VOLUME 9.0 FL (7.4-10.4); RED CELL DISTRIBUTION WIDTH 13.7 % (11.5-14.5)
[2024-12-07 07:02] LABS: INR 1.4 INR
[2024-12-07 07:12] LABS: CREATININE 0.74 MG/DL (0.60-1.10); PHOSPHORUS 3.2 MG/DL (2.3-4.5); TOTAL CARBON DIOXIDE 21.7 MMOL/L (24-32); eCRCL 114 ML/MIN; eGFR > 90 ML/MIN
[2024-12-07 07:36] LABS: BANDS% (MANUAL) 5.0 % (0-10); LYMPHOCYTES % (MANUAL) 7.0 % (21-51); METAMYLEOCYTES% (MANUAL) 5.0 % (0-0); NEUTROPHILS % (MANUAL) 83.0 % (42-75); NUCLEATED RED BLOOD CELLS 1 /100WBC (0-0); PLATELET ESTIMATE NORMAL
[2024-12-07] MEDS: potassium Cl 20 mEq SR tablet PO STA (09:31)
[2024-12-07] MEDS ORDERED: AMOX-318 PO (10:52)
[2024-12-07] MEDS: INSULIN LISPRO 100 UNIT/ML INSULN.PEN MULTI-DOSE SQ ONE (11:08)
[2024-12-07] MEDS: VANCOMYCIN/WATER FOR INJ (PEG) 1.5GM/300 ML IVPB IV SCH (12:34)
[2024-12-07] MEDS ORDERED: magnesium sulf-water 4G/100mL 100 ML IV PRN (13:20)
[2024-12-07] MEDS ORDERED: magnesium sulf-water 2g/50mL 50 ML IV PRN (13:20)
[2024-12-07] MEDS ORDERED: magnesium Cl slow-release 64mg tablet PO PRN (13:20)
[2024-12-07] MEDS ORDERED: potassium Cl 20 mEq SR tablet PO PRN ×2 (13:20)
[2024-12-07] MEDS ORDERED: potassium Cl 40MEQ/1/2NS 520ml 520 ML IV PRN (13:20)
--- NOTE | 2024-12-07 18:30 | DISCHARGE SUMMARY-Residence ---
Discharge Summary Providers to CC Resident Creating Document: YEN ANGULO RES CC: ANDREA ALCALA MD ~ Discharge Summary Assessment 39-year-old male with autism, profound intellectual disability, nonverbal, history of PICA and recurrent pneumonias, presenting with lethargy, decreased oral intake, SOB, cough, fever, and left leg limp. Found to have multifocal pneumonia with respiratory distress and left lower extremity pain/edema. GCS 9 on exam. CTA chest showed bilateral consolidations, no PE, and cardiomegaly. Admission Diagnosis: Pneumonia Hospital Course DATE OF ADMISSION: 12/03/2024 DATE OF DISCHARGE: 12/07/2024 Discharge Diagnosis\Comment: Acute hypoxemic respiratory failure secondary to multifocal pneumoniae Multifocal pneumonia (likely aspiration vs community-acquired) Gram-positive Gram-negative coverage Gram-positive bacteremia, Staphylococcus saprophyticus Acute delirium, schizophrenia Normocytic anemia Operations\Procedures: None Consultants: None Complications: None Condition on DC: Stable New Medications: Amox Tr/Potassium Clavulanate (Amox Tr-K Clv 875-125 Mg Tab) 1 Each Tablet 1 TAB PO Q12H for 5 Days, #10 TAB Lactobacillus Rhamnosus (Culturelle) 10 Billion Cell Capsule 1 CAP PO DAILY for 30 Days, #30 CAP 0 Refills Prednisone (Prednisone) 10 Mg Tablet 0 PO DAILY, #21 TAB Three tablets daily for 3 days 2 tablets daily for 3 days 1 tablet daily for 3 days Half tablet daily for 3 days Guaifenesin (Guaifenesin) 100 Mg/5 Ml Liquid 600 MG PO Q12H for 30 Days, #60 ML Continued Medications: Benztropine Mesylate (Benztropine Mesylate) 0.5 Mg Tablet 1 TABLET PO BID Cetirizine HCl (Cetirizine HCl) 10 Mg Tab.chew 1 TAB PO DAILY Clonazepam (Clonazepam) 1 Mg Tablet 2 TABLET PO HS, #30 TABLET AT 2000 Clonazepam* (Klonopin*) 1 Mg Tablet 1 MG PO BID, TAB AT 0800 AND 1200 PM Divalproex Sodium (Divalproex Sodium) 250 Mg Tablet.dr 1 TAB PO BID, TAB.SR Divalproex Sodium (Divalproex Sodium) 250 Mg Tablet.dr 2 TAB PO HS, TAB.SR Glycopyrrolate (Robinul) 1 Mg Tablet 1 TAB PO DAILY Olanzapine (Olanzapine) 15 Mg Tablet 2 TAB TL HS Quetiapine Fumarate (Quetiapine Fumarate) 50 Mg Tablet 50 MG PO BID, TAB Quetiapine Fumarate (Quetiapine Fumarate) 200 Mg Tablet 1 TAB PO BID for 30 Days, #30 TAB 0 Refills Discharge Summary: 39-year-old male with autism, profound intellectual disability, nonverbal, history of PICA and recurrent pneumonias, presenting with lethargy, decreased oral intake, SOB, cough, fever, and left leg limp. Found to have multifocal pneumonia with respiratory distress and left lower extremity pain/edema. GCS 9 on exam. CTA chest showed bilateral consolidations, no PE, and cardiomegaly. Hospital course -patient is admitted for acute hypoxemic respiratory failure secondary to pneumonia. Initially we started him on Zosyn and azithromycin. His sputum cultures and blood cultures are negative. And he received IV methylpredni solone. Patient's symptoms improved and his oxygen requirements came down. During the hospital stay patient received his home medications of quetiapine and olanzapine. He had left foot or ankle pain and x-ray done showed no fractures. We continued all his home medications. He had no other complications during the hospital stay and is hemodynamically stable at the time of discharge General: Conscious, alert, but not oriented, not in apparent distress HEENT: Head is normal in shape and no injuries. Pupils are equal, round, and reactive to light. Eye movements are intact. Patient is not exposing his face for examination. Neck: Trachea is centrally positioned. No masses or jugular vein distension noted. Chest: Decreased breath sounds bilaterally. Presence of bilateral rhonchi. No wheezing or crackling sounds detected. Cardiovascular: Rhythm is regular. No rubs or murmurs present. Abdomen: Soft, non-tender, and non-distended. Bowel sounds are audible. Extremities: No signs of cyanosis or clubbing. No edema today. Patient withdraws on examining Central Nervous System: Patient is unable to comprehend or follow commands. Can move all four limbs without difficulty. Skin: Warm and dry to the touch. Laboratory Tests Test 12/06/24 05:44 12/06/24 13:54 12/06/24 23:24 12/07/24 06:16 White Blood Count 12.5 X10'3 Red Blood Count 3.99 X10'6 Hemoglobin 11.8 g/dl Hematocrit 35.7 % Mean Corpuscular Volume 89.4 FL Mean Corpuscular Hemoglobin 29.6 PG Mean Corpuscular Hemoglobin Concent 33.1 g/dL Red Cell Distribution Width 13.9 % Platelet Count 382 X10'3 Mean Platelet Volume 8.6 FL Neutrophils (%) (Auto) 81.7 % Lymphocytes (%) (Auto) 11.4 % Monocytes (%) (Auto) 6.5 % Eosinophils (%) (Auto) 0 % Basophils (%) (Auto) 0.4 % Neutrophils # (Auto) 10.2 X10'3 Lymphocytes # (Auto) 1.4 X10'3 Monocytes # (Auto) 0.8 X10'3 Eosinophils # (Auto) 0.0 X10'3 Basophils # (Auto) 0.1 X10'3 CBC Comment Differential Total Cells Counted 100 Neutrophils % (Manual) 63.0 % Band Neutrophils % 12.0 % Lymphocytes % (Manual) 18.0 % Monocytes % (Manual) 4.0 % Metamyelocytes % 3.0 % Platelet Estimate Normal Red Blood Cell Morphology Normal Basophilic Stippling Prothrombin Time 12.4 SECONDS INR International Normalized Ratio 1.2 INR Activated Partial Thromboplast Time 40 SECONDS Coagulation Comments Sodium Level 150 MMOL/L 148 MMOL/L 135 MMOL/L Potassium Level 4.0 MMOL/L 4.2 MMOL/L 3.2 MMOL/L Chloride Level 116 MMOL/L 113 MMOL/L 103 MMOL/L Carbon Dioxide Level 26.4 MMOL/L 27.0 MMOL/L 21.7 MMOL/L Anion Gap 8 8 10 Blood Urea Nitrogen 27 MG/DL 24 MG/DL 15 MG/DL Creatinine 0.88 MG/DL 0.97 MG/DL 0.74 MG/DL Estimated GFR/1.73 m2 > 90 ML/MIN 86 ML/MIN > 90 ML/MIN BUN/Creatinine Ratio 30.7 24.7 20.3 Glucose Level 162 MG/DL 246 MG/DL 346 MG/DL Calcium Level 8.2 MG/DL 8.1 MG/DL 7.3 MG/DL Phosphorus Level 4.6 MG/DL 3.2 MG/DL Magnesium Level 2.8 MG/DL 2.0 MG/DL Total Bilirubin 0.2 MG/DL 0.2 MG/DL 0.6 MG/DL Aspartate Amino Transf (AST/SGOT) 15 U/L 14 U/L 16 U/L Alanine Aminotransferase (ALT/SGPT) 16 U/L 19 U/L 17 U/L Alkaline Phosphatase 69 IU/L 70 IU/L 61 IU/L Total Protein 7.0 G/DL 6.9 G/DL 5.9 G/DL Albumin 2.6 G/DL 2.6 G/DL 2.3 G/DL Globulin 4.4 G/DL 4.3 G/DL 3.6 G/DL Albumin/Globulin Ratio 0.6 0.6 0.6 Chemistry Comments Vancomycin Level Trough 12.8 ug/mL Test 12/07/24 06:19 12/07/24 11:05 White Blood Count 12.7 X10'3 Red Blood Count 3.89 X10'6 Hemoglobin 11.4 g/dl Hematocrit 34.2 % Mean Corpuscular Volume 87.9 FL Mean Corpuscular Hemoglobin 29.2 PG Mean Corpuscular Hemoglobin Concent 33.2 g/dL Red Cell Distribution Width 13.7 % Platelet Count 393 X10'3 Mean Platelet Volume 9.0 FL Neutrophils (%) (Auto) 84.0 % Lymphocytes (%) (Auto) 11.7 % Monocytes (%) (Auto) 3.9 % Eosinophils (%) (Auto) 0 % Basophils (%) (Auto) 0.4 % Neutrophils # (Auto) 10.6 X10'3 Lymphocytes # (Auto) 1.5 X10'3 Monocytes # (Auto) 0.5 X10'3 Eosinophils # (Auto) 0.0 X10'3 Basophils # (Auto) 0.0 X10'3 CBC Comment Differential Total Cells Counted 100 Neutrophils % (Manual) 83.0 % Band Neutrophils % 5.0 % Lymphocytes % (Manual) 7.0 % Metamyelocytes % 5.0 % Nucleated Red Blood Cells 1 /100WBC Platelet Estimate Normal Red Blood Cell Morphology Normal Basophilic Stippling Prothrombin Time 13.5 SECONDS INR International Normalized Ratio 1.4 INR Coagulation Comments Glucometer 213 mg/dl CTA chest IMPRESSION: 1. No pulmonary embolism. 2. Extensive bilateral lower lobe, lingular and right middle lobe consolidation consistent with pneumonia. Patchy multifocal bilateral upper lobe pulmonary infiltrate noted as well. 3. Cardiomegaly. 4. Enlarged right hilar lymph node. Is discharge medications can be found above and patient is discharged to his half-way *Problems/Diagnosis: (1) Hypoxia Status: Acute (2) Pneumonia Status: Acute Total Time Spent on D/C: > 30 Minutes Date of Service: Dec 07, 2024 Billing Provider: ANDREA ALCALA MD, HARIVARSHA, RES Dec 07, 2024 18:29
[2024-12-08] MEDS ORDERED: VANCOMYCIN LEVEL IV ONE (23:30)
== END 2024-12-07 15:15 | disposition home or self-care (01) | DRG 133 ==
LOC: ER 22:53 → ED HOLD 12-03 02:48 → PCU 3S 12-03 04:25
PROVIDERS: ADMIT Internal Medicine; ATTEND Family Medicine
PROC: B32T1ZZ Computerized Tomography (CT Scan) of Left Pulmonary Artery using Low Osmolar Contrast (ICD-10-PCS; principal; 2024-12-03)
PROC: B3201ZZ Computerized Tomography (CT Scan) of Thoracic Aorta using Low Osmolar Contrast (ICD-10-PCS; 2024-12-03)
PROC: B32S1ZZ Computerized Tomography (CT Scan) of Right Pulmonary Artery using Low Osmolar Contrast (ICD-10-PCS; 2024-12-03)
DX: J96.01 Acute respiratory failure with hypoxia (principal); J69.0 Pneumonitis due to inhalation of food and vomit; M25.562 Pain in left knee; M25.572 Pain in left ankle and joints of left foot; R78.81 Bacteremia; R41.0 Disorientation, unspecified; D64.9 Anemia, unspecified; F20.9 Schizophrenia, unspecified; Z79.899 Other long term (current) drug therapy
CPT/HCPCS: 36415; 71045; 71275; 73560; 73600; 80048; 80053; 80061; 80202; 82948; 83036; 83605; 83735; 83880; 84100; 84145; 84439; 84443; 84484; 85007; 85025; 85610; 85730; 87040; 87077; 87081; 87186; 92508; 92616; 93005; 94640; 94760; 96365; 97116; 97161; 97530; 99285; A6213; A6250; G0378; J0456; J0696; J1650; J1815; J2250; J2543; J2919; J3374; J3375; J7030; J7040; J7070; Q9967

== ENCOUNTER 2025-04-24 21:13 | Emergency (ER) | payer MEDICAID ==
[~2025-04-24 21:13] MED LIST changes: +BENZ0.5T44 PO; -BENZ0.5T52 PO; -BISA-155 PO; -CHOL400C8 PO; -DIPH25CA83 PO; +DIVA-74 PO; -DIVA500T9 PO; -DOCU-28 PO; +GUAI100L97 PO; -IBUP-1984 PO; +LACT1CAP26 PO; -MELA5TAB66 PO; -MULT-38 PO; -POLY17PO10 PO; +PRED10TA PO; +QUET200T31 PO; -QUET300T5 PO; -QUET50TA PO; +QUET50TA24 PO
[2025-04-24 21:42] VITALS: BP 194/120; PULSE 117; RESP 20; O2SAT 97
--- NOTE | 2025-04-24 21:52 | Physician Documentation ---
History of Present Illness ~ Stated Complaint: HIT HEAD/HEAD LAC Time Seen by MD: 21:48 OK to notify your PCP?: Yes Primary Medical Doctor: [facility] HPI Patient presents to the emergency room for concerns for scalp laceration. Patient has history of self-injurious behavior. Patient that has hit in his head on a wall and developed a laceration to his scalp and they were concerned because it what it stopped bleeding. Patient's bleeding has stopped spontaneously in the waiting room while waiting to check in. He is acting like himself. Tetanus within 5 years?: Yes Medication Reconciliation Allergies: Coded Allergies: No Known Allergies (Unverified , 11/20/24) Scheduled Benztropine Mesylate (Benztropine Mesylate), 1 TABLET PO BID, (Reported) Cetirizine HCl (Cetirizine HCl), 1 TAB PO DAILY, (Reported) Clonazepam (Clonazepam), 2 TABLET PO HS, (Reported) Clonazepam* (Klonopin*), 1 MG PO BID, (Reported) Divalproex Sodium (Divalproex Sodium), 1 TAB PO BID, (Reported) Divalproex Sodium (Divalproex Sodium), 2 TAB PO HS, (Reported) Glycopyrrolate (Robinul), 1 TAB PO DAILY, (Reported) Guaifenesin (Guaifenesin), 600 MG PO Q12H Lactobacillus Rhamnosus (Culturelle), 1 CAP PO DAILY Olanzapine (Olanzapine), 2 TAB TL HS, (Reported) Prednisone (Prednisone), 0 PO DAILY Quetiapine Fumarate (Quetiapine Fumarate), 50 MG PO BID, (Reported) Quetiapine Fumarate (Quetiapine Fumarate), 1 TAB PO BID, (Reported) Past Medical History Past Medical History: *[employer]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 Alcohol Use: None Drug Use: none Lives with: Other Lives In: Assisted Care Occupation: disabled Review of Systems ROS All review of systems negative except as per HPI Physical Exam Physical Exam General: Patient is awake, alert, he had no acute distress looking about room Head: Normocephalic with a small abrasion to his left lateral parietal scalp measuring 1 cm with no active bleeding. Partial-thickness Eyes: Conjunctival normal. EOMI. PERRL. ENT: Mucous membranes moist. Neck: Supple, trachea is midline. Chest: Clear to auscultation bilaterally without rales, rhonchi, or wheezes. There is no accessory muscle use or retractions. Cardiac: RRR without murmurs, gallops, or rubs. Medical Decision Making Additional information obtaine: N/A Findings Patient presents to the emergency room with a laceration to his scalp. Bleeding has stopped spontaneously. He had not feel he requires a CT scan. Differential Dx:Considerations: Include: Closed head injury, Cervical spine injury, Skull facture, Fracture, Abrasion, Contusion, Foreign body, Laceration, Intoxication-alcohol, Intoxication-other drug, Substance abuse disorder, Personality disorder, Non-accidental trauma, Other Departure Disposition: 01 HOME / SELF CARE / HOMELESS Impression: Primary Impression: Laceration Condition: Stable Discharge Instructions: Laceration Care, Adult, [id number] Additional Instructions: Returned to the emergency room for any altered behavior or signs of infection. Referrals: NO PRIMARY CARE PROVIDER (PCP) Signature Scribe Signature: No scribe Attestation: The note accurately reflects work and decisions made by me.Destin Dee MD 04/24/25 21:51 DESTIN DEE MD Apr 24, 2025 21:52
== END 2025-04-24 22:04 | disposition home or self-care (01) ==
LOC: ER 21:14
DX: S01.01XA Laceration without foreign body of scalp, initial encounter (principal); W22.01XA Walked into wall, initial encounter; Y93.89 Activity, other specified; Y92.89 Other specified places as the place of occurrence of the external cause; Y99.8 Other external cause status
CPT/HCPCS: 99282

== ENCOUNTER 2025-04-29 09:45 | Emergency (ER) | payer MEDICAID ==
[~2025-04-29] VITALS: Ht 170.2 cm; Wt 81.8 kg
[2025-04-29 10:24] VITALS: O2SAT 98
--- NOTE | 2025-04-29 12:24 | RADIOLOGY REPORT ---
CHEST RADIOGRAPH INDICATION: COUGH TECHNIQUE: Frontal and lateral view of the chest was obtained COMPARISON: DI CHEST,SINGLE VIEW on DOS: 12/02/24, DI CHEST,SINGLE VIEW on DOS: 11/20/24, DI CHEST,SINGLE VIEW on DOS: 07/30/24 FINDINGS: Lines and Tubes: None Lungs: Increased interstitial prominence. Pleura: No effusion. No pneumothorax. Cardiomediastinal contours: Unremarkable Bones: Unremarkable IMPRESSION: Possible viral pneumonitis.
[2025-04-29 12:30] VITALS: BP 189/120; PULSE 118
[2025-04-29 12:35] VITALS: TEMP 97.9
[2025-04-29 12:52] LABS: MEAN PLATELET VOLUME 8.9 FL (7.4-10.4); RED CELL DISTRIBUTION WIDTH 13.8 % (11.5-14.5)
[2025-04-29 13:12] LABS: CREATININE 0.83 MG/DL (0.60-1.10); PRO BRAIN NATRIURETIC PEPTIDE < 30 PG/ML (0-125); TOTAL CARBON DIOXIDE 26.7 MMOL/L (24-32); eCRCL 111 ML/MIN; eGFR > 90 ML/MIN
--- NOTE | 2025-04-29 13:22 | Physician Documentation ---
History of Present Illness ~ Chief Complaint: Shortness of Breath Stated Complaint: PNEUMONIA Time Seen by MD: 12:29 [facility] Source: patient, RN/MD Mode of Arrival: POV, Ambulatory HPI Patient is seen today with caregivers with concern for possible aspiration or aspiration pneumonia. They state that when he eats or drinks he tends to cough or choke or gag and they state this is his baseline. Patient states that some of the caregivers or nurses at the facility were concerned and wanted patient checked out today. They deny any cough or runny nose or fever or chills or nausea or vomiting or any other change from baseline. They have no other concern or complaint at this time. Medication Reconciliation Allergies: Coded Allergies: No Known Allergies (Unverified , 04/24/25) Scheduled Benztropine Mesylate (Benztropine Mesylate), 1 TABLET PO BID, (Reported) Cetirizine HCl (Cetirizine HCl), 1 TAB PO DAILY, (Reported) Clonazepam (Clonazepam), 2 TABLET PO HS, (Reported) Clonazepam* (Klonopin*), 1 MG PO BID, (Reported) Divalproex Sodium (Divalproex Sodium), 1 TAB PO BID, (Reported) Divalproex Sodium (Divalproex Sodium), 2 TAB PO HS, (Reported) Glycopyrrolate (Robinul), 1 TAB PO DAILY, (Reported) Guaifenesin (Guaifenesin), 600 MG PO Q12H Lactobacillus Rhamnosus (Culturelle), 1 CAP PO DAILY Olanzapine (Olanzapine), 2 TAB TL HS, (Reported) Prednisone (Prednisone), 0 PO DAILY Quetiapine Fumarate (Quetiapine Fumarate), 50 MG PO BID, (Reported) Quetiapine Fumarate (Quetiapine Fumarate), 1 TAB PO BID, (Reported) Past Medical History 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 Alcohol Use: None Drug Use: none Lives with: Other Lives In: Assisted Care Occupation: disabled Review of Systems Constitutional: Denies: chills, fever, weakness Eyes: Denies: pain, blurred vision ENT: Denies: ear pain, nose pain, throat pain, mouth pain Respiratory: Denies: cough, shortness of breath Cardiovascular: Denies: chest pain, palpitations Gastrointestinal: Denies: abdominal pain, nausea, vomiting Genitourinary: Denies: burning, dysuria Male Genitalia: Denies: penile discharge, testicular pain Neurological: Denies: headache, dizziness Musculoskeletal: Denies: pain, swelling Integumentary: Denies: rash, lesions Allergic/Immunologic: Denies: hives, itching Hematologic/Lymphatic: Denies: no symptoms reported Psychiatric: Denies: depression, anxiety Physical Exam Vital Signs: Temperature: 97.9, Source: Axillary, Heart Rate: 118, Respiratory Rate: 22, BP: 189/120, Pulse Oximetry: 98, Weight: 81.800 Oxygen Flow Rate: 0 Physical Exam General: Awake, no acute distress. Patient is non communicative. History was obtained from caregivers. HEENT: Conjunctiva pink, Sclera clear, Mucus Membranes moist. Neck: Supple without masses and tenderness. Resp: Unlabored. Lungs clear to auscultation bilaterally. Heart: Regular Rate and rhythm, normal S1 and S2 without murmur, rub or gallop. Abdomen: Soft and non tender no organomegaly Extremities: No cyanosis,clubbing or edema. Skin: Warm and Dry. Progress Results/Orders Results/Orders Orders - AMA GARNER PAC Chest,Two Views (04/29/25 12:13) Culture Blood (04/29/25 12:04) Saline Lock (04/29/25 12:04) Oxygen (04/29/25 12:04) Behavioral Restraints (04/29/25 ) Completed Orders - AMA GARNER PAC Chest,Two Views (04/29/25 12:13) Cbc/Diff (04/29/25 12:04) BMP (04/29/25 12:04) PBNP (04/29/25 12:04) Lacticsepsis (04/29/25 12:04) Normal Saline 1000ml (0.9% Sodium Chlori (04/29/25 13:15) Normal Saline 1000ml (0.9% Sodium Chlori (04/29/25 13:45) Normal Saline 500ml Iv Soln (Sodium Chlo (04/29/25 14:15) Lactic,2hr (04/29/25 14:10) Medications Received in ER Medications (Trade) Dose Ordered Sig/Vee Route PRN Reason Start Time Stop Time Status Last Admin Dose Admin Sodium Chloride 1,000 ml @ 1,000 mls/hr ONCE ONCE IV 04/29/25 13:15 04/29/25 14:14 DC 04/29/25 13:30 1,000 MLS/HR Sodium Chloride 1,000 ml @ 1,000 mls/hr ONCE ONCE IV 04/29/25 13:45 04/29/25 14:44 DC 04/29/25 13:30 1,000 MLS/HR Sodium Chloride 500 ml @ 500 mls/hr Q1H ONCE IV 04/29/25 14:15 04/29/25 15:14 DC 04/29/25 13:30 500 MLS/HR Vital Signs 04/29/25 04/29/25 04/29/25 04/29/25 10:24 12:20 12:30 12:35 Temp 98.2 97.9 97.9 Pulse 117 118 118 Resp 18 22 22 22 B/P (MAP) 176/105 189/120 (143) 189/120 (143) Pulse Ox 98 O2 Flow Rate 0 0 04/29/25 04/29/25 12:45 13:08 Resp 22 22 B/P (MAP) O2 Flow Rate 0 Laboratory Tests Test 04/29/25 12:42 04/29/25 14:24 White Blood Count 8.2 Red Blood Count 5.47 Hemoglobin 15.2 Hematocrit 45.8 Mean Corpuscular Volume 83.8 Mean Corpuscular Hemoglobin 27.8 Mean Corpuscular Hemoglobin Concent 33.1 Red Cell Distribution Width 13.8 Platelet Count 244 Mean Platelet Volume 8.9 Neutrophils (%) (Auto) 48.1 Lymphocytes (%) (Auto) 39.9 Monocytes (%) (Auto) 9.1 Eosinophils (%) (Auto) 2.0 Basophils (%) (Auto) 0.9 Neutrophils # (Auto) 3.9 Lymphocytes # (Auto) 3.3 Monocytes # (Auto) 0.7 Eosinophils # (Auto) 0.2 Basophils # (Auto) 0.1 CBC Comment Sodium Level 144 Potassium Level 3.9 Chloride Level 106 Carbon Dioxide Level 26.7 Anion Gap 11 Blood Urea Nitrogen 17 Creatinine 0.83 Estimated GFR/1.73 m2 > 90 BUN/Creatinine Ratio 20.5 H Glucose Level 109 H Lactic Acid Level 4.2 *H 1.3 Calcium Level 8.6 Pro-B-Type Natriuretic Peptide < 30 Albumin 3.7 Chemistry Comments Microbiology Date/Time Source Procedure Growth Status 04/29/25 12:43 Blood Arm Left Blood Culture - Preliminary NEGATIVE (LESS THAN 24 HOURS) Resulted EKG/XRAY/CT/US/VASC/MRI Chest X-Ray : Additional Comments DIAGNOSTIC RADIOLOGY Patient: HUSSEIN BACA Medical Record: [id number] [facility] : 1985, Age: 40 Sex: Male Location: ER Patient Status: [facility] ER Service Date/Time: 04/29/25/ 1213 Ordering Physician: AMA GARNER PAC Exam: CHEST,TWO VIEWS CHEST RADIOGRAPH INDICATION: COUGH TECHNIQUE: Frontal and lateral view of the chest was obtained COMPARISON: DI CHEST,SINGLE VIEW on DOS: 12/02/24, DI CHEST,SINGLE VIEW on DOS: 11/20/24, DI CHEST,SINGLE VIEW on DOS: 07/30/24 FINDINGS: Lines and Tubes: None Lungs: Increased interstitial prominence. Pleura: No effusion. No pneumothorax. Cardiomediastinal contours: Unremarkable Bones: Unremarkable IMPRESSION: Possible viral pneumonitis. Electronically Signed by:SHELDON FISHER MD Date & Time: 04/29/25 1221 Dictated by: SHELDON FISHER MD Dictation date and time: 04/29/25 1208 Primary Care Provider: NO PRIMARY CARE PROVIDER cc: AMA GARNER PAC ~ Medical Decision Making Additional information obtaine: N/A Findings Patient is seen today with caregivers with concern for possible aspiration or aspiration pneumonia. They state that when he eats or drinks he tends to cough or choke or gag and they state this is his baseline. Patient states that some of the caregivers or nurses at the facility were concerned and wanted patient checked out today. They deny any cough or runny nose or fever or chills or nausea or vomiting or any other change from baseline. They have no other concern or complaint at this time. Patient did have labs drawn that showed elevated lactic acid at 4.3. Patient did receive 2-1/2 L of fluid and his lactic acid drops substantially shortly after to just above one. Patient is chest x-ray and labs were otherwise unremarkable and patient will be discharged and will follow up as needed. Heart Score: 0 Differential Dx:Considerations: Include: asthma, COPD, pneumonia, pneumonitis, respiratory distress, respiratory failure, upper resp. infection Departure Disposition: HOME / SELF CARE / HOMELESS Impression: Primary Impression: choking episode Condition: Stable Additional Instructions: Patient did have labs drawn that showed elevated lactic acid at 4.3. Patient did receive 2-1/2 L of fluid and his lactic acid drops substantially shortly after to just above one. Patient is chest x-ray and labs were otherwise unrema rkable and patient will be discharged and will follow up as needed. Referrals: NO PRIMARY CARE PROVIDER (PCP) Signature Scribe Signature: No scribe Attestation: No scribe AMA GARNER PAC Apr 29, 2025 13:22
[2025-04-29] MEDS: normal saline 1000ml 1,000 ML IV ONE ×2 (13:30)
[2025-04-29] MEDS: normal saline 500ml IV soln 500 ML IV ONE (13:30)
[2025-04-29 15:25] VITALS: RESP 22
== END 2025-04-29 15:39 | disposition home or self-care (01) ==
LOC: ER 09:46
DX: T17.928A Food in respiratory tract, part unspecified causing other injury, initial encounter (principal); Z79.899 Other long term (current) drug therapy; W44.F3XA Food entering into or through a natural orifice, initial encounter; Y93.89 Activity, other specified; Y92.89 Other specified places as the place of occurrence of the external cause; Y99.8 Other external cause status
CPT/HCPCS: 36415; 71046; 80048; 83605; 83880; 85025; 87040; 99285; J7030; J7040; A6449